=== PATIENT | male | born 1975 | race Caucasian/White ===

== ENCOUNTER 2021-03-19 13:09 | Emergency (ER) | payer SELFPAY ==
[~2021-03-19] VITALS: Ht 172.7 cm; Wt 81.6 kg
--- NOTE | 2021-03-19 13:15 | NUR ---
PT BIBA AND TAKEN TO BED 9
[2021-03-19 13:16] VITALS: BP 129/74
[2021-03-19] MEDS ORDERED: BACITRACIN OINT 500 UNITS/GM PKT TP ONE (13:20)
[2021-03-19] MEDS ORDERED: LIDOCAINE 2% 1000 MG/50 ML VIAL INJ ONE (13:20)
--- NOTE | 2021-03-19 13:20 | NUR ---
45Y MALE BIBA FROM HOME DUE TO LACERATION ON R WRIST, HAND, AND FINGER. PER EMS PATIENT WAS DRINKING, DROPPED THE BOTTLE AND FELL ONTO THE BOTTLE RESULTING IN THE LACERATION. ABOUT 4IN FULL THICKNESS LACERATION NOTED ON PATIENT R WRIST. 3 LACERATIONS NOTED ON PATIENT DORSAL HAND/FINGERS EACH ABOUT 0.5 INCH. PMH: ETOH NKA
--- NOTE | 2021-03-19 13:44 | NUR ---
XRAY AT PATIENT BEDSIDE
[2021-03-19] MEDS ORDERED: BACI1PAC6 TP (14:36)
[2021-03-19] MEDS ORDERED: CEPH-588 PO (14:36)
--- NOTE | 2021-03-19 15:20 | NUR ---
Patient noted to have existing wounds upon arrival to ER. Wound covered with dressing. Physician informed.
--- NOTE | 2021-03-19 15:58 | NUR ---
Patient discharged with v/s stable. Written and verbal after care instructions given and explained. Patient alert, oriented and verbalized understanding of instructions. Ambulatory with steady gait. All questions addressed prior to discharge. ID band removed. Patient advised to follow up with PMD. Rx of KEFLEX, BACITRACIN given. Patient educated on indication of medication including possible reaction and side effects. Opportunity to ask questions provided and answered.
[2021-03-19 15:59] VITALS: BP 122/70
== END 2021-03-19 15:59 | disposition home or self-care (01) ==
LOC: MED 13:09
DX: S61.511A Laceration without foreign body of right wrist, initial encounter (principal); W20.8XXA Other cause of strike by thrown, projected or falling object, initial encounter; Y93.89 Activity, other specified; Y92.89 Other specified places as the place of occurrence of the external cause; Y99.8 Other external cause status
CPT/HCPCS: 12002; 73130; 90471; 90715; 99283; J2001